=== PATIENT | female | born 1995 | race Caucasian/White ===

== ENCOUNTER 2019-09-25 14:00 | Outpatient (CLI) | payer BC, SELFPAY ==
--- NOTE | ~2019-09-25 | US_ITS ---
EXAMINATION: US pelvic complete w TV DATE: 09/25/2019 14:55 INDICATION: Irregular menses TECHNIQUE: Multiple transabdominal and endovaginal sonographic images of the pelvis were obtained. COMPARISON: None. FINDINGS: The uterus measures 8.3 x 4.2 x 3.4 cm. The endometrial complex measures 6 mm. The right ov kiara measures 3.6 x 2.6 x 2.1 cm. The left ovary measures 3.2 x 2.0 x 1.4 cm. There is normal vascular flow in the ovaries. There is no free fluid in the pelvis. IMPRESSION: 1. . No sonographic correlate for the patient's symptoms. Reviewed, dictated and finalized at location A.
== END 2019-09-25 14:01 | disposition home or self-care (01) ==
PROVIDERS: Visit Provider Obstetrics & Gynecology
DX: N92.6 Irregular menstruation, unspecified (principal)
CPT/HCPCS: 76830; 76856